=== PATIENT | male | born 1995 | race African-American/Black ===

== ENCOUNTER 2020-08-02 06:42 | Emergency (ER) | payer OTHER ==
[~2020-08-02] VITALS: Ht 188 cm; Wt 83.5 kg
[2020-08-02 06:55] VITALS: BP_SYST 148
[2020-08-02] MEDS ORDERED: PRED5DRO25 LEFT EYE (08:16)
[2020-08-02] MEDS ORDERED: HYDR-3919 PO (08:16)
[2020-08-02] MEDS ORDERED: HYDROcodone/ACETAMIN 5-325 MG TAB (NORCO/ VICODIN) PO ONE (08:30)
[2020-08-02 09:40] VITALS: BP_SYST 143
== END 2020-08-02 09:40 | disposition home or self-care (01) ==
LOC: SED 06:42
DX: H20.9 Unspecified iridocyclitis (principal); R03.0 Elevated blood-pressure reading, without diagnosis of hypertension
CPT/HCPCS: 99283

== ENCOUNTER 2022-07-07 01:54 | Emergency (ER) | payer OTHER ==
[~2022-07-07] VITALS: Ht 188 cm; Wt 82.1 kg
[~2022-07-07 01:54] MED LIST: HYDR-3919 PO; PRED5DRO25 LEFT EYE
[2022-07-07 02:05] VITALS: BP_SYST 130
--- NOTE | 2022-07-07 02:07 | NUR ---
DR. GASTON AT BEDSIDE WITH PATIENT FOR MSE.
--- NOTE | 2022-07-07 02:07 | NUR ---
PT FROM HOME WITH C/O OF NOSE BLEED ACCOMPANIED BY FLU-LIKE SYMPTOMS FOR PAST COUPLE DAYS. PT REPORTS HAVING CONSISTENT NOSE BLEED SINCE 1400, WORSENED WITHIN THE LAST HOUR. VSS. SAFETY PRECAUTIONS IN PLACE AND CONNECTED TO MONITOR.
--- NOTE | 2022-07-07 02:09 | NUR ---
Patient to ER bed 04 to gown for evaluation. Side rails up. Report given to ANABELA HARRISON.
--- NOTE | 2022-07-07 02:11 | NUR ---
MD Grullon at bedside examining pt.
[2022-07-07] MEDS ORDERED: TRANEXAMIC ACID 1,000 MG/10 ML VIAL TP ONE (02:15)
[2022-07-07] MEDS ORDERED: PHENYLEPHRINE HCL 1% NASAL 15 ML NASPR NS ONE (02:15)
[2022-07-07] MEDS ORDERED: TRANEXAMIC ACID 1,000 MG/10 ML VIAL ONE (02:18)
[2022-07-07] MEDS ORDERED: oxyCODONE HCL 10 MG TAB.ER.12H PO ONE (02:22)
[2022-07-07] MEDS ORDERED: OXYMETAZOLINE HCL 0.05% NASAL SPRAY NS ONE (02:23)
[2022-07-07 02:54] VITALS: BP_SYST 127
--- NOTE | 2022-07-07 02:57 | NUR ---
Patient given written and verbal discharge instructions and verbalizes understanding. ER MD Grullon discussed with patient the results and treatment provided. Patient in stable condition. ID arm band removed. Patient educated on pain management and to follow up with PMD. Opportunity for questions provided and answered.
== END 2022-07-07 02:54 | disposition home or self-care (01) ==
LOC: SED 01:54
DX: R04.0 Epistaxis (principal); Z79.899 Other long term (current) drug therapy
CPT/HCPCS: 99282; J3490

== ENCOUNTER 2022-09-19 23:04 | Emergency (ER) | payer OTHER ==
[~2022-09-19] VITALS: Ht 188 cm; Wt 86.2 kg
[2022-09-19 23:20] VITALS: BP_SYST 141
--- NOTE | 2022-09-19 23:20 | NUR ---
Patient triaged and placed in waiting room. VSS and patient appears in no acute distress at this time. Accompanied by fam member, awaiting available bed, and MD notified of need for MSE.
--- NOTE | 2022-09-19 23:37 | NUR ---
Patient to ER bed [facility] to gown for evaluation. Side rails up.
--- NOTE | 2022-09-19 23:41 | NUR ---
Xray performed at the bedside.Pt tolerated well.
--- NOTE | 2022-09-19 23:49 | NUR ---
ER Dr.Dela Almeida at bedside examining patient.
[2022-09-19] MEDS ORDERED: METH-634 PO (23:55)
[2022-09-19] MEDS ORDERED: IBUP800T54 PO (23:55)
--- NOTE | 2022-09-20 00:05 | NUR ---
Patient given written and verbal discharge instructions and verbalizes understanding. ER MD discussed with patient the results and treatment provided. Patient in stable condition. ID arm band removed. Rx of Ibuprofen,Methocarbamol given. Patient educated on pain management and to follow up with PMD. Pain Scale 5/10. Opportunity for questions provided and answered. Medication side effect fact sheet provided.
[2022-09-20 00:08] VITALS: BP_SYST 137
== END 2022-09-20 00:09 | disposition home or self-care (01) ==
LOC: SED 23:04
DX: S93.401A Sprain of unspecified ligament of right ankle, initial encounter (principal); Z79.899 Other long term (current) drug therapy; W21.05XA Struck by basketball, initial encounter; Y93.67 Activity, basketball; Y92.89 Other specified places as the place of occurrence of the external cause; Y99.8 Other external cause status
CPT/HCPCS: 99283